=== PATIENT | male | born 1980 | race African-American/Black ===

== ENCOUNTER 2017-04-29 19:25 | Emergency (ER) | payer SELFPAY ==
[2017-04-29] MEDS ORDERED: Oseltamivir 75 MG CAP ONE (20:20)
== END 2017-04-29 20:25 | disposition home or self-care (01) ==
LOC: NAV ERS 19:25
DX: J11.1 Influenza due to unidentified influenza virus with other respiratory manifestations (principal); F17.210 Nicotine dependence, cigarettes, uncomplicated
CPT/HCPCS: 99283

== ENCOUNTER 2019-05-20 22:25 | Emergency (ER) | payer SELFPAY ==
[2019-05-20] MEDS ORDERED: Lorazepam 2 MG/ML VIAL ONE (22:31)
== END 2019-05-21 00:16 | disposition home or self-care (01) ==
LOC: NAV ERS 22:25
DX: F16.10 Hallucinogen abuse, uncomplicated (principal); F41.9 Anxiety disorder, unspecified; F17.210 Nicotine dependence, cigarettes, uncomplicated
CPT/HCPCS: 96374; J2060

== ENCOUNTER 2019-09-20 18:35 | Emergency (ER) | payer SELFPAY ==
[2019-09-20] MEDS ORDERED: Sodium Chloride 0.9% 1,000 ML ONE (18:52)
[2019-09-20 19:14] LABS: #Lymphocytes 2.3 thou/uL (1.20-3.40); #Monocytes 0.8 thou/uL (0.11-0.59); #Neutrophils 5.5 thou/uL (1.40-6.50); %Basophils 0.6 % (0.0-1.0); %Eosinophils 0.4 % (0.0-10.0); %Lymphocytes 26.3 % (21.0-51.0); %Monocytes 9.7 % (0.0-10.0); Hemoglobin 15.5 g/dL (14.0-18.0); Mean Corpuscular Hemoglobin 30.1 pg (27.0-31.0); Mean Corpuscular Volume 97.1 fL (78.0-98.0); Mean Platelet Volume 11.4 fL (7.4-10.4); Platelet Count 219 thou/uL (130-400); Red Blood Cell (RBC) Count 5.15 mill/uL (4.70-6.10); White Blood Cell (WBC) Count 8.7 thou/uL (4.8-10.8)
[2019-09-20 19:28] LABS: ALT (SGPT) 31 U/L (8-55); AST (SGOT) 23 U/L (5-34); Albumin 4.7 g/dL (3.5-5.0); Alkaline Phosphatase 39 U/L (40-110); Anion Gap 20 mmol/L (10-20); BUN (Urea Nitrogen) 12 mg/dL (8.9-20.6); Bilirubin, Total 0.8 mg/dL (0.2-1.2); CK (CPK) 229 U/L (30-200); Calc. Creatinine Clearance 0 mL/min (70-130); Calcium 9.5 mg/dL (7.8-10.44); Carbon Dioxide 20 mmol/L (22-29); Chloride 104 mmol/L (98-107); Estimated GFR-MDRD 54; Glucose 176 mg/dL (70-105); Potassium 3.8 mmol/L (3.5-5.1); Protein, Total 7.7 g/dL (6.0-8.3); Sodium 140 mmol/L (136-145)
[2019-09-20 19:29] LABS: Acetaminophen Less than 6.0 mcg/mL (10.0-30.0); Alcohol Less than 10 mg/dL (Less than 10); Salicylate Less than 8.0 mg/dL (15.0-30.0)
== END 2019-09-20 20:10 ==
LOC: NAV ERS 18:35
DX: F19.10 Other psychoactive substance abuse, uncomplicated (principal); F41.9 Anxiety disorder, unspecified; F17.210 Nicotine dependence, cigarettes, uncomplicated
CPT/HCPCS: 80053; 80307; 82550; 84443; 85025; 93005; 94760; J7050

== ENCOUNTER 2020-10-26 08:18 | Emergency (ER) | payer SELFPAY ==
[2020-10-26] MEDS ORDERED: Boostrix 0.5 ML (Tdap) VIAL ONE (08:33)
[2020-10-26] MEDS ORDERED: Amoxicillin/Potassium Clav 875 MG TAB ONE (08:51)
== END 2020-10-26 09:12 | disposition home or self-care (01) ==
LOC: NAV ERS 08:18
DX: S91.332A Puncture wound without foreign body, left foot, initial encounter (principal); I10 Essential (primary) hypertension; F17.210 Nicotine dependence, cigarettes, uncomplicated; Z23 Encounter for immunization; W22.8XXA Striking against or struck by other objects, initial encounter
CPT/HCPCS: 90471; 90715

== ENCOUNTER 2021-05-08 15:01 | Emergency (ER) | payer OTHER, SELFPAY ==
[2021-05-09 13:09] LABS: SARS-CoV-2 PCR by NAA DETECTED (NotDetected)
== END 2021-05-08 16:05 | disposition home or self-care (01) ==
LOC: NAV ERS 15:01
DX: U07.1 COVID-19 (principal); F17.210 Nicotine dependence, cigarettes, uncomplicated
CPT/HCPCS: 99283; U0003; U0005

== ENCOUNTER 2021-11-21 08:55 | Emergency (ER) | payer BC ==
[2021-11-21] MEDS ORDERED: Ibuprofen 800 MG TAB ONE (09:39)
== END 2021-11-21 09:45 | disposition home or self-care (01) ==
LOC: NAV ERS 08:55
DX: U07.1 COVID-19 (principal)
CPT/HCPCS: 99283; U0003; U0005

== ENCOUNTER 2022-06-19 05:28 | Emergency (ER) | payer BC, SELFPAY ==
[2022-06-19] MEDS ORDERED: Sodium Chloride 0.9% 1,000 ML ONE (06:00)
[2022-06-19] MEDS ORDERED: Diazepam 10 MG/2 ML SYRINGE ONE ×2 (06:15→06:32)
[2022-06-19 07:04] LABS: ALT (SGPT) 26 U/L (8-55); AST (SGOT) 19 U/L (5-34); Albumin 4.7 g/dL (3.5-5.0); Alkaline Phosphatase 38 U/L (40-110); Anion Gap 15 mmol/L (10-20); BUN (Urea Nitrogen) 6 mg/dL (8.9-20.6); Bilirubin, Total 1.1 mg/dL (0.2-1.2); Calc. Creatinine Clearance 0 mL/min (70-130); Calcium 9.7 mg/dL (7.8-10.44); Carbon Dioxide 24 mmol/L (22-29); Chloride 103 mmol/L (98-107); Estimated GFR 77; Globulin 2.8 g/dL (2.4-3.5); Glucose 123 mg/dL (70-105); Potassium 3.2 mmol/L (3.5-5.1); Protein, Total 7.5 g/dL (6.0-8.3); Sodium 139 mmol/L (136-145)
[2022-06-19 07:14] LABS: #Basophils 0.1 thou/uL (0.0-0.2); #Lymphocytes 2.8 thou/uL (1.20-3.40); #Monocytes 0.8 thou/uL (0.11-0.59); #Neutrophils 4.3 thou/uL (1.40-6.50); %Eosinophils 0.6 % (0.0-10.0); %Lymphocytes 34.7 % (21.0-51.0); %Monocytes 10.4 % (0.0-10.0); %Neutrophils 53.4 % (42.0-75.0); Hemoglobin 15.4 g/dL (14.0-18.0); Mean Corpuscular HGB CONC 32.2 g/dL (32.0-36.0); Mean Corpuscular Hemoglobin 30.6 pg (27.0-31.0); Mean Corpuscular Volume 95.2 fl (78.0-98.0); Mean Platelet Volume 9.2 fL (7.4-10.4); Platelet Count 209 10x3/uL (130-400); RBC Distribution Width 13.2 % (11.5-14.5); Red Blood Cell (RBC) Count 5.04 mill/uL (4.70-6.10)
[2022-06-19] MEDS ORDERED: Nitroglycerin 50 MG/250 ML BOT 250 ML ONE (07:21)
[2022-06-19 08:58] LABS: Bilirubin Negative (Negative); Blood, Urine Negative (Negative); Clarity Clear (Clear); Glucose, Urine (Dipstick) Negative (Negative); Ketone, Urine Negative (Negative); Leukocyte Negative (Negative); Nitrite Negative (Negative); Protein, Urine (Dipstick) Negative (Neg-Trace); pH, Urine 5.5 (5.0-9.0)
[2022-06-19 09:10] LABS: Amphetamine Not Detected (NotDetected); Barbiturates Screen Not Detected (NotDetected); Benzodiazepine Screen Not Detected (NotDetected); Cocaine Metabolite Screen Not Detected (NotDetected); Medtox Control Line Valid? VALID (VALID); Methadone Not Detected (NotDetected); Methamphetamine Not Detected (NotDetected); Opiate Screen Not Detected (NotDetected); Oxycodone Screen Not Detected (NotDetected); Phencyclidine (PCP) Detected (NotDetected); THC/Cannabinoid Screen Detected (NotDetected); Tricyclic Screen Not Detected (NotDetected)
[2022-06-19 11:52] LABS: HBSAB Concentration Less than 8.00 mIU/mL; HBSAg Index 0.23 S/CO (0-0.99); HIV (1/2) Antibody/Antigen Non-Reactive (NonReactive); HIV 1/2 INDEX 0.44 S/CO (<1.00); Hep A IgM AB Non-Reactive (NonReactive); Hep A IgM S/CO 0.14 S/CO (0-0.79); Hep B Core Total Ab Non-Reactive (NonReactive); Hep B Core Total Index 0.05 S/CO (0-0.79); Hep B Surf AB Non-Reactive (NonReactive); Hep B Surf Ag Non-Reactive S/CO (NonReactive); Hep C IgG Ab Non-Reactive (NonReactive); Hep C Index 0.07 S/CO (0-0.79)
== END 2022-06-19 10:28 | disposition short-term general hospital (02) ==
LOC: NAV ERS 05:28
DX: F14.129 Cocaine abuse with intoxication, unspecified (principal); I10 Essential (primary) hypertension
CPT/HCPCS: 36416; 80053; 80306; 81003; 82550; 84484; 85025; 86704; 86706; 86709; 86803; 87340; 87389; 93005; 96374; 96375; 96376; J3360; J7050